=== PATIENT | female | born 1960 | race African-American/Black ===

== ENCOUNTER 2017-10-28 21:47 | Inpatient (IN) | payer OTHER ==
[~2017-10-28] VITALS: Ht 160 cm; Wt 107.3 kg
--- NOTE | ~2017-10-28 | EKG ---
[address] [address] ELECTROCARDIOGRAM REPORT Name: DAKOTAH HOLLOWAY Room #: 170-11 ADM IN M.R.#: [id number] Admission: 10/28/17 Attend Phys: Torey Duarte MD Discharge: Date of : 56 Report #: [id number] THIS REPORT FOR: //name// 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 : 1960 Requested By: Ana Manzano Order Number: [id number] MD: Ramon Mart Measurements Intervals [place] Rate: 53 P: 47 VA: 147 QRS: 13 QRSD: 107 T: 39 QT: 439 QTc: 413 Interpretive Statements Sinus bradycardia Borderline T abnormalities, anterior leads Compared to ECG 01/11/2016 15:17:23 T-wave abnormality now present Electronically Signed On 10-29-2017 7:34:19 [employer]EE[employer] by Ramon Mart [email or web address] <ELECTRONICALLY SIGNED> By: Ramon Mart MD, [facility] 10/29/17 0734 04 04 Ramon Mart MD, [facility] /EPI
--- NOTE | ~2017-10-28 | HC ---
[facility] [place] [address] CONSULTATION Name: DAKOTAH HOLLOWAY Room #: 215-P ADM IN M.R.#: [id number] Admission: 10/28/17 Attend Phys: Torey Duarte MD Discharge: Date of : 56 Report #: [id number] THIS REPORT FOR: //name// CC: Torey Duarte FAM unknown Te De La Torre Fortino Orlando DATE OF SERVICE: 10/29/2017 HISTORY OF PRESENT ILLNESS: This is a 56-year-old female patient who indicates she started having some pain in the left arm. She also has some paraesthesia, this started about 5 days ago, this started spontaneously without any trauma. She classifies it as a moderately severe, she does not know any aggravating or relieving factor, she does feel weak on the left side. REVIEW OF SYSTEMS: Indicate that she had some back surgery in the past. She had pain in the chest, which is being evaluated by cardiology. 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 She had been to [facility] for that and she indicated also been to [place]. She does not have a family doctor, she indicated she used to have a family doctor from [place] whose name she does not know, but after she left back to [place], she has not been able to find a family doctor. She is having some cough and feeling cold without any shivering. She indicates she had surgery in the back. She has hypertension and because of all that, she is disabled. I carried out the 14-point review of systems and that was her relevant 14-point review of systems, although she is complaining of multiple other nonspecific symptoms like some nonspecific symptom in the throat. She is not complaining of any GI or symptoms. She has back problems in the past and she is not having any dermatological or hematological symptoms. She says sometimes she feels anxious. She does not take any medication for anxiety or depression. ALLERGIES: She does not have any allergies. PAST MEDICAL HISTORY: Positive for 2 strokes, but the history is poorly defined. FAMILY HISTORY: Negative for early age stroke. SOCIAL HISTORY: She says she does not drink alcohol or smoke. PHYSICAL EXAMINATION: The patient's examinations indicate she is alert and responsive. She can follow simple commands. Her speech, concentration, fund of knowledge and memory is at her baseline. Cranial nerve examination 2-12 is unremarkable. She does have weakness on the left arm, but I do not know how much effort she gave. She has a normal position sense in all 4 extremities. [facility] [address] [place] [address] CONSULTATION Name: DAKOTAH HOLLOWAY Room #: 215-P [facility] IN .R.#: [id number] Admission: 10/28/17 Attend Phys: Torey Duarte MD Discharge: Date of : 56 Report #: [id number] Reflexes and tone looks symmetrical. There is no cerebellar sign or papilledema. She is a reasonably well-developed individual who does not have any dysmorphic features of eyes, ears and face. She does not appear to have any edema, cyanosis, or jaundice. Her visions and hearing looks adequate. She does not have any thyroid mass or any carotid bruit. Cardiac examination shows unremarkable heart sounds and no murmur or arrhythmia. No respiratory difficulty or rhonchi was noticed on either side. Vital signs indicate a blood pressure 119/32, respirations 14, pulse is 55, and temperature is 99.2. LABORATORY DATA: Her white count is normal at 6.9. Potassium is trace low. Her creatinine is trace high at 1.1. She had a CT angio, which I cannot find. IMPRESSION: I think she needs further workup to determine the diagnosis in this patient. She is scheduled to have an MRI and we will look at it. I will also suggest doing the MRI of the C-spine. She is going to be worked up by cardiology. Her further workup will depend upon the outcome of these testing and we will await these testing. She may need EMG, but we do not have an EMG machine in the hospital. RECOMMENDATIONS: 1. MRI of the brain. 2. MRI of the C-spine. 3. We will reevaluate this patient after these testing are done and try to find her CT angio and then decide about the further management. Thank you very much for this referral and if you have any question, please feel free to contact me. <ELECTRONICALLY SIGNED> By: Fortino Orlando MD 10/29/172000 0716 0928 Fortino Orlando MD /nt
--- NOTE | ~2017-10-28 | CATHLAB ---
[facility] [address] [email or web address] [address] INVASIVE PROCEDURE REPORT Name: DAKOTAH HOLLOWAY Room #: 215-P ADM IN M.R.#: [id number] Admission: 10/28/17 Attend Phys: Torey Duarte MD Discharge: Date of : 56 Date of Service: 10/29/17 1410 Report #: [id number] THIS REPORT FOR: //name// APPROVED REPORT Patient Details Patient Status: Out-Patient Room #: The patient is a 56 year-old female Event Personnel Hank Bustamante Football Pad Repairer, David Fisher RN, Kellie Bergman Sandifer, David Monitor Procedures Performed Left Heart Cath w/or w/o Coronaries [id number] [facility] Indication Dyspnea, Chest pain Risk Factors Cerebrovascular Disease, Hypercholesterolemia, Hypertension Procedure Narrative The Right Groin^ was infiltrated with 1% Lidocaine subcutaneous anesthesia. A PINNACLE 4FR Sheath #[id number] sheath was inserted into the RFA^. Coronary angiography was performed using coronary diagnostic catheters. The right coronary system was accessed and visualized with a JR4 catheter. The left coronary system was accessed and visualized with a JL4 catheter. The left ventricle was accessed and visualized with a PIGTAIL catheter. Left ventricular/Aortic Valve gradient assessed via catheter pullback. Hemostasis was obtained with manual pressure following sheath removal without any complications. The patient tolerated the procedure well and there were no complications associated with the procedure. There was no hematoma. Intraoperative Conscious Sedation Sedation start time: 9.19 Case end Time: 9.33 Fentanyl 25.0 mcg Versed 1.5 mg Fluoro Time: 333.00 minutes Dose: 752 mGy Contrast Type and Amount: Omnipaque 50 ml [facility] [address] [place] [address] INVASIVE PROCEDURE REPORT Name: DAKOTAH HOLLOWAY Room #: 215-P [facility] IN ..#: [id number] Admission: 10/28/17 Attend Phys: Torey Duarte MD Discharge: Date of : 56 Date of Service: 10/29/17 1410 Report #: [id number] Coronary Angiography The patient's coronary anatomy is right dominant. Diagnostic Cath Left Main Patent vessel, with no flow-limiting lesions. LAD Moderate size caliber vessel, traveling down the anterior wall and wrapping around the apex. There are no flow-limiting lesions in the LAD. Circumflex Patent vessel, with no flow obstructing lesions. There may be some minimal luminal irregularities in the distal segment. Right Coronary Dominant vessel, with no evidence of flow-limiting lesions. Left Ventriculography Left Ventriculography was not performed. Using a pigtail catheter, the LVEDP was measured and there is no gradient across the outflow tract. Hemodynamics The aortic pressure is 133/81 mmHg with a mean of 102 mmHg. The left ventricular pressure is 167/15 mmHg with a mean of mmHg. The left ventricular end diastolic pressure is 28 mmHg. Conclusion 1. Patent coronary arteries, with no flow-limiting lesions. There may be some minimal luminal irregularities in the distal left circumflex artery. 2. Recommend aggressive CAD risk factor management. <ELECTRONICALLY SIGNED> By: Hank Bustamante MD 10/29/17 1410 141 141 Hank Bustamante MD /INF
[~2017-10-28 21:47] MED LIST: AMLODIPINE BESY10 MG PO; ASPIR 8181 MG PO; HYDROCHLOROTHIA25 M2 PO; LASIX 20 MG TAB20 MG PO; LISINOPRIL20 MG PO; METOPROLOL SUCC50 MG PO; NEURONTIN600 MG PO
[2017-10-28 21:56] VITALS: BP 144/81
[2017-10-28 22:35] LABS: ABSOLUTE NEUTROPHILS 3.6 thou/uL (1.4-8.2); BASOPHILS 0.6 % (0.0-2.0); EOSINOPHILS 2.4 % (0.0-3.0); HEMATOCRIT 36.3 % (37.0-47.0); HEMOGLOBIN 12.3 gm/dL (12.0-15.0); MCH 29.8 pg (26.0-34.0); MCHC 33.8 g/dL (28.0-37.0); MCV 88.1 fL (80.0-100.0); MONOCYTES 5.7 % (1.0-8.0); PLATELET COUNT 225 thou/uL (150-400); POLYS 51.3 % (36.0-66.0); RBC 4.12 mil/uL (4.20-5.00); RDW 13.5 % (10.5-14.5); WBC 6.9 thou/uL (4.0-11.0)
[2017-10-28 22:53] LABS: ANION GAP 10 mmol/L (7-16); BUN 27 mg/dL (7-18); CALCIUM 9.4 mg/dL (8.5-10.1); CHLORIDE 107 mmol/L (98-107); CO2 27 mmol/L (21-32); CREATININE 1.4 mg/dL (0.6-1.0); GLUCOSE 107 mg/dL (74-106); POTASSIUM 3.3 mmol/L (3.5-5.1); SODIUM 144 mmol/L (136-145)
[2017-10-28 22:54] LABS: APTT 25.8 Seconds (24.5-32.8); PROTIME 10.2 Seconds (9.3-11.4); TROPONIN-I < 0.04 ng/mL (<0.06)
[2017-10-28] MEDS ORDERED: ZESTRIL20 MG PO (23:33)
[2017-10-28] MEDS ORDERED: CRESTOR40 MG PO (23:34)
[2017-10-28] MEDS ORDERED: IMDUR 30 MG TAB30 M1 PO (23:34)
[2017-10-29 04:53] LABS: ANION GAP 8 mmol/L (7-16); BUN 25 mg/dL (7-18); CALCIUM 8.5 mg/dL (8.5-10.1); CHLORIDE 108 mmol/L (98-107); CHOLESTEROL 118 mg/dL (<200); CO2 26 mmol/L (21-32); CREATININE 1.1 mg/dL (0.6-1.0); GLUCOSE 96 mg/dL (74-106); HDL CHOLESTEROL 36 mg/dL (>40); LDL CHOLESTEROL 64 mg/dL (<100); POTASSIUM 3.4 mmol/L (3.5-5.1); SODIUM 142 mmol/L (136-145); TC:HDL 3.3 Ratio (Not establshd); TRIGLYCERIDE 91 mg/dL (<150); TROPONIN-I < 0.04 ng/mL (<0.06); VLDL 18 mg/dL (<40)
[2017-10-29 04:57] LABS: SERUM ASSESSMENT Clear
[2017-10-29 09:07] VITALS: BP 119/32
[2017-10-29 11:40] VITALS: BP 137/62
[2017-10-29 15:20] VITALS: BP 134/20
[2017-10-29] MEDS ORDERED: CHLORTHALIDONE25 MG PO (15:32)
[2017-10-29 19:50] VITALS: BP 133/68
[2017-10-30 00:45] VITALS: BP 131/53
[2017-10-30 04:30] VITALS: BP 104/56
[2017-10-30 04:30] LABS: HEMATOCRIT 34.5 % (37.0-47.0); HEMOGLOBIN 11.5 gm/dL (12.0-15.0); MCH 29.5 pg (26.0-34.0); MCHC 33.3 g/dL (28.0-37.0); MCV 88.5 fL (80.0-100.0); RBC 3.89 mil/uL (4.20-5.00); RDW 13.7 % (10.5-14.5); WBC 6.1 thou/uL (4.0-11.0)
[2017-10-30 04:42] LABS: CALCIUM 8.8 mg/dL (8.5-10.1); POTASSIUM 3.5 mmol/L (3.5-5.1)
[2017-10-30 07:15] VITALS: BP 146/71
[2017-10-30 11:35] VITALS: BP 146/80
[2017-10-30 12:25] VITALS: BP 146/71
== END 2017-10-30 13:40 | disposition home or self-care (01) | DRG 287 ==
LOC: ER 21:47 → 2N 23:57 → EROBS 23:57 → 2N 10-29 11:44
PROVIDERS: Emergency Medicine; Internal Medicine Cardiovascular Disease; Nurse Practitioner Family
DX: R07.9 Chest pain, unspecified (principal); N17.9 Acute kidney failure, unspecified; I11.0 Hypertensive heart disease with heart failure; I50.9 Heart failure, unspecified; J45.909 Unspecified asthma, uncomplicated; E78.5 Hyperlipidemia, unspecified; G47.33 Obstructive sleep apnea (adult) (pediatric); Z88.8 Allergy status to other drugs, medicaments and biological substances; Z86.73 Personal history of transient ischemic attack (TIA), and cerebral infarction without residual deficits; Z79.899 Other long term (current) drug therapy; Z82.49 Family history of ischemic heart disease and other diseases of the circulatory system; Z82.3 Family history of stroke; Z88.5 Allergy status to narcotic agent
CPT/HCPCS: 10081

== ENCOUNTER 2018-03-10 23:45 | Inpatient (IN) | payer OTHER ==
[~2018-03-10] VITALS: Ht 160 cm; Wt 105.2 kg
--- NOTE | ~2018-03-10 | EKG ---
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 : 1960 Requested By: Daniel Wade Order Number: [id number] MD: Ramon Mart Measurements Intervals [place] Rate: 53 P: 46 MT: 149 QRS: 20 QRSD: 112 T: 25 QT: 536 QTc: 504 Interpretive Statements Sinus bradycardia Abnrm T, consider ischemia, anterolateral lds Prolonged QT interval Compared to ECG 10/28/2017 22:05:07 Prolonged QT interval now present T-wave abnormality is more prominent Electronically Signed On 03-11-2018 8:29:10 CDT by Ramon Mart [email or web address] <ELECTRONICALLY SIGNED> By: Ramon Mart MD, [facility] 03/11/18 0829 0002 0002 Ramon Mart MD, [facility] /EPI
--- NOTE | ~2018-03-10 | HC ---
[facility] [place] [address] CONSULTATION Name: DAKOTAH HOLLOWAY Room #: 207-P [facility] IN M.R.#: [id number] Admission: 03/11/18 Attend Phys: Cassie Kiser Discharge: Date of : 56 Report #: [id number] THIS REPORT FOR: //name// CC: FAM unknown Te De La Torre Cassie Kiser DATE OF SERVICE: 03/11/2018 INDICATION: Chest pain. HISTORY OF PRESENT ILLNESS: This is a 57-year-old female with a history of hypertension, hypercholesterolemia, bradycardia, presenting with an episode of dizziness and chest pains. Yesterday, she felt intermittent episodes of dizziness and headaches throughout the day. Last evening, when she laid down, the patient developed shortness of breath and chest discomfort. The chest pain was in the substernal area, radiating bilaterally. The whole episode lasted for approximately one hour. She did feel nausea, but denies any fever or diarrhea. She was hospitalized early this year in October with chest pain, undergoing cardiac catheterization. She was found to have patent coronary arteries with no evidence of obstruction. PAST MEDICAL HISTORY: Hypertension, hypercholesterolemia, history of bradycardia, history of CHF, probably diastolic dysfunction. Obesity. ALLERGIES: ACETAMINOPHEN. MEDICATIONS: Apparently were chlorthalidone 25 mg daily, aspirin, lisinopril 20 mg daily, Crestor 40 mg, Imdur 30. SOCIAL HISTORY: Denies tobacco use. FAMILY HISTORY: Negative for premature CAD. REVIEW OF SYSTEMS: A full 10-point review of systems performed. Only the pertinent positives and negatives are described in the HPI. PHYSICAL EXAMINATION: VITAL SIGNS: Blood pressure is 150/80, heart rate is 60 beats per minute. GENERAL APPEARANCE: An overweight female in no acute respiratory distress. HEENT: Normocephalic, atraumatic. Sclerae are anicteric. ENT: Oral mucosa moist. NECK: Supple. LUNGS: Clear to auscultation. CARDIAC: Regular rate and rhythm, S1, S2 positive. ABDOMEN: Soft, nontender. [facility] [address] [place] [address] CONSULTATION Name: JEWELDAKOTAH Room #: [facility] IN M.R.#: [id number] Admission: 03/11/18 Attend Phys: Cassie Kiser Discharge: Date of : 56 Report #: [id number] EXTREMITIES: No cyanosis, no edema. ECG reveals sinus bradycardia, symmetrical T-wave inversions in the precordial leads. LABORATORY VALUES: Troponin is negative x 2. White count is 8.0, hemoglobin 11.4, creatinine is 1.0. ASSESSMENT AND PLAN: 1. Chest pain syndrome, she had a recent cardiac catheterization revealing patent coronary arteries. I do not feel this is related to ischemia. However, she does have symmetrical T-wave inversions in the precordial leads, which is changed from her baseline. The patient is undergoing an echo and stress test. 2. Hypertension, continue lisinopril. The patient reports developing dizziness with a new medication that her primary care physician just started. We will monitor for any effects at this time. 3. Hypercholesterolemia, continue with Crestor. 4. Bradycardia, stable heart rates. Continue with telemetry. 5. Congestive heart failure, stable with no evidence of congestion. By: [phone] Hank Bustamante MD /nt
--- NOTE | ~2018-03-10 | 2DMMODE ---
[facility] [address] [place] [address] 2 D/M-MODE ECHOCARDIOGRAM Name: JEWELDAKOTAH Room #: 207-P ADM IN M.R.#: [id number] Admission: 03/11/18 Attend Phys: Cassie Esquivel Discharge: Date of : 56 Date of Service: 03/11/18 0922 Report #: [id number] THIS REPORT FOR: //name// APPROVED REPORT Study performed: 03/11/2018 08:31:50 EXAM: Comprehensive 2D, Doppler, and color-flow Echocardiogram Patient Location: Echo lab Room #: [facility] Status: routine BSA: 2.06 HR: 51 bpm BP: 178/83 mmHg Other Information Study Quality: Good Indications Abnormal ECG Congestive Heart Failure Chest Pain Hypertension/HDD 2D Dimensions RVDd: 36.79 mm LVEF(%): 70.18 (>50%) IVSd: 11.76 (7-11mm) LVOT Diam: 20.21 (18-24mm) LVDd: 46.26 mm PWd: 13.11 (7-11mm) Ascending Ao: 27.38 (22-36mm) LVDs: 27.94 (25-40mm) Aortic Root: 31.41 mm IVC: 24.00 mm Farmer's LVEF: 70.18 % Volumes Left Atrial Volume (Systole) Single Plane 4CH: 51.72 mL Single Plane 2CH: 55.71 mL LA ESV Index: 29.00 mL/m2 Aortic Valve AoV Peak Timo.: 1.61 m/s AO Peak Gr.: 10.42 mmHg LVOT Max P.81 mmHg LVOT Max V: 1.10 m/s DONN Vmax: 2.18 cm2 Mitral Valve [facility] [email or web address] [place] [address] 2 D/M-MODE ECHOCARDIOGRAM Name: DAKOTAH HOLLOWAY Room #: 207-P [facility] IN M.R.#: [id number] Admission: 03/11/18 Attend Phys: Cassie Esquivel Discharge: Date of : 56 Date of Service: 03/11/18 0922 Report #: [id number] E/A Ratio: 1.3 MV Decel. Time: 189.34 ms MV E Max Timo.: 1.06 m/s MV A Timo.: 0.84 m/s MV PHT: 54.91 ms IVRT: 69.20 ms Pulmonary Valve PV Peak Timo.: 0.88 m/s PV Peak Gr.: 3.10 mmHg Pulmonary Vein P Vein S: 0.52 m/s P Vein A: 0.33 m/s P Vein D: 0.40 m/s P Vein A Dur.: 115.3 msec P Vein S/D Ratio: 1.30 Tricuspid Valve TR Peak Timo.: 2.37 m/s TR Peak Gr.: 22.53 mmHg PA Pressure: 33.00 mmHg Left Ventricle The left ventricle is normal size. There is normal LV segmental wall motion. Mild concentric left ventricular hypertrophy. The left ventricular systolic function is normal. The left ventricular ejection fraction is within the normal range. LVEF is 60-65%. The left ventricular diastolic function is normal. Right Ventricle The right ventricle is normal size. The right ventricular systolic function is normal. Atria The left atrium size is normal. The right atrium size is normal. Aortic Valve The aortic valve is normal in structure. No aortic regurgitation is present. There is no aortic valvular stenosis. Mitral Valve The mitral valve is normal in structure. Mild mitral regurgitation. No evidence of mitral valve stenosis. Tricuspid Valve The tricuspid valve is normal in structure. There is trace tricuspid regurgitation. Estimated PAP [address] [address] 2 D/M-MODE ECHOCARDIOGRAM Name: DAKOTAH HOLLOWAY Room #: 207-P [facility] IN M.R.#: [id number] Admission: 03/11/18 Attend Phys: Cassie Esquivel Discharge: Date of : 56 Date of Service: 03/11/18 0922 Report #: [id number] Pulmonic Valve The pulmonary valve is normal in structure. Trace pulmonic regurgitation. Great Vessels The aortic root is normal in size. IVC is dilated and collapses >50% with inspiration. Pericardium There is no pericardial effusion. <Conclusion> The left ventricular systolic function is normal. There is normal LV segmental wall motion. LVEF is 60-65%. The aortic valve is normal in structure. No aortic regurgitation or stenosis The mitral valve is normal in structure. Mild mitral regurgitation. There is trace tricuspid regurgitation. Estimated pulmonary artery pressure of 30 mmHg. There is no pericardial effusion. <ELECTRONICALLY SIGNED> By: Ramon Mart MD, FACC 03/11/18921 1 1 Ramon Mart MD, FACC /INF
[~2018-03-10 23:45] MED LIST changes: +CHLORTHALIDONE25 MG PO; +CRESTOR40 MG PO; +IMDUR 30 MG TAB30 M1 PO; +ZESTRIL20 MG PO
[2018-03-10 23:50] VITALS: BP 175/87
[2018-03-11 00:37] LABS: ABSOLUTE NEUTROPHILS 4.6 thou/uL (1.4-8.2); BASOPHILS 0.8 % (0.0-2.0); EOSINOPHILS 2.2 % (0.0-3.0); HEMATOCRIT 34.7 % (37.0-47.0); HEMOGLOBIN 11.4 gm/dL (12.0-15.0); LYMPHOCYTES 33.1 % (24.0-44.0); MCHC 32.9 g/dL (28.0-37.0); MCV 88.1 fL (80.0-100.0); MONOCYTES 5.5 % (1.0-8.0); PLATELET COUNT 211 thou/uL (150-400); POLYS 58.4 % (36.0-66.0); RBC 3.94 mil/uL (4.20-5.00); RDW 13.9 % (10.5-14.5)
[2018-03-11 00:47] LABS: ANION GAP 10 mmol/L (7-16); BUN 19 mg/dL (7-18); CALCIUM 9.6 mg/dL (8.5-10.1); CHLORIDE 108 mmol/L (98-107); CO2 25 mmol/L (21-32); GLUCOSE 111 mg/dL (74-106); POTASSIUM 3.8 mmol/L (3.5-5.1); SODIUM 143 mmol/L (136-145)
[2018-03-11 00:52] LABS: APTT 23.7 Seconds (24.5-32.8); PROTIME 9.7 Seconds (9.3-11.4)
[2018-03-11 00:56] LABS: ALBUMIN 3.8 g/dL (3.4-5.0); MAGNESIUM 2.1 mg/dL (1.8-2.4); SGOT 24 U/L (15-37); SGPT 31 U/L (30-65); TOTAL BILIRUBIN 0.3 mg/dL (<0.1-1.0); TOTAL PROTEIN 7.3 g/dL (6.4-8.2); TROPONIN-I < 0.04 ng/mL (<0.06)
[2018-03-11 01:26] VITALS: BP 169/82
[2018-03-11 02:22] VITALS: BP 167/88
[2018-03-11 02:46] VITALS: BP 178/83
[2018-03-11 07:25] VITALS: BP 144/66
[2018-03-11 08:31] LABS: CHOLESTEROL 119 mg/dL (<200); HDL CHOLESTEROL 42 mg/dL (>40); LDL CHOLESTEROL 56 mg/dL (<100); TC:HDL 2.8 Ratio (Not establshd); TRIGLYCERIDE 109 mg/dL (<150); VLDL 22 mg/dL (<40)
[2018-03-11 11:00] VITALS: BP 146/74
[2018-03-11 14:04] VITALS: BP 146/74
== END 2018-03-11 15:00 | disposition home or self-care (01) | DRG 305 ==
LOC: ER 23:45 → 2N 03-11 01:16 → EROBS 03-11 01:16 → 2N 03-11 01:16 → ENTRNSPT 03-11 14:24 → EDTRNSPTSTS 03-11 14:26 → 2N 03-11 15:00
PROVIDERS: Emergency Medicine; Hospitalist
DX: I16.0 Hypertensive urgency (principal); Z68.41 Body mass index [BMI] 40.0-44.9, adult; I50.9 Heart failure, unspecified; E66.9 Obesity, unspecified; R00.1 Bradycardia, unspecified; J45.909 Unspecified asthma, uncomplicated; E78.5 Hyperlipidemia, unspecified; G47.33 Obstructive sleep apnea (adult) (pediatric); I11.0 Hypertensive heart disease with heart failure; Z83.3 Family history of diabetes mellitus; Z88.8 Allergy status to other drugs, medicaments and biological substances; Z82.49 Family history of ischemic heart disease and other diseases of the circulatory system; Z86.73 Personal history of transient ischemic attack (TIA), and cerebral infarction without residual deficits; Z82.3 Family history of stroke; Z79.82 Long term (current) use of aspirin; Z79.899 Other long term (current) drug therapy
CPT/HCPCS: 10081

== ENCOUNTER 2019-10-19 13:36 | Emergency (ER) | payer OTHER ==
[~2019-10-19] VITALS: Ht 160 cm; Wt 97.5 kg
[2019-10-19] MEDS ORDERED: FUROSEMIDE 20 M20 MG PO (14:15)
[2019-10-19] MEDS ORDERED: NORVASC 2.5 MG2.5 M1 PO (14:16)
[2019-10-19 15:58] VITALS: BP 141/62
[2019-10-19] MEDS ORDERED: PROAIR HFA8.5 GM INH (16:00)
[2019-10-19] MEDS ORDERED: BENZONATATE200 MG PO (16:00)
== END 2019-10-19 16:00 | disposition home or self-care (01) ==
LOC: ER 13:36 → EDBD 13:36 → ER 16:00
DX: J10.1 Influenza due to other identified influenza virus with other respiratory manifestations (principal); I11.0 Hypertensive heart disease with heart failure; I50.9 Heart failure, unspecified; J45.909 Unspecified asthma, uncomplicated; E78.5 Hyperlipidemia, unspecified; Z86.73 Personal history of transient ischemic attack (TIA), and cerebral infarction without residual deficits; Z88.6 Allergy status to analgesic agent

== ENCOUNTER 2019-12-08 12:07 | Emergency (ER) | payer OTHER ==
[~2019-12-08] VITALS: Ht 160 cm; Wt 101.6 kg
[~2019-12-08 12:07] MED LIST changes: +BENZONATATE200 MG PO; +FUROSEMIDE 20 M20 MG PO; +NORVASC 2.5 MG2.5 M1 PO; +PROAIR HFA8.5 GM INH
[2019-12-08] MEDS ORDERED: TOPROL XL25 MG PO (12:20)
[2019-12-08] MEDS ORDERED: TESSALON PERLE100 MG PO (14:09)
[2019-12-08] MEDS ORDERED: FLONASE 0.05%50 MCG NASAL (14:09)
[2019-12-08 14:24] VITALS: BP 132/76
== END 2019-12-08 14:25 | disposition home or self-care (01) ==
LOC: ER 12:07
DX: J06.9 Acute upper respiratory infection, unspecified (principal); I11.0 Hypertensive heart disease with heart failure; I50.9 Heart failure, unspecified; J45.909 Unspecified asthma, uncomplicated; G47.33 Obstructive sleep apnea (adult) (pediatric); E78.5 Hyperlipidemia, unspecified; Z86.73 Personal history of transient ischemic attack (TIA), and cerebral infarction without residual deficits